=== PATIENT | male | born 1960 | race Caucasian/White ===

== ENCOUNTER 2016-11-10 15:17 | Emergency (ER) | payer SELFPAY ==
[~2016-11-10] VITALS: Ht 172.7 cm; Wt 74.1 kg
[2016-11-10 15:23] VITALS: Ht 172.7 cm; Wt 74.1 kg
[2016-11-10] MEDS ORDERED: SOD CHLORIDE 0.9% 1,000 ML IV STA (15:30)
[2016-11-10 16:24] LABS: BASOPHILS % 0.3 % (0.0-2.0); CHLORIDE 106 mmol/L (97-110); EOSINOPHILS # 0.1 10^3/ul (0.0-0.5); EOSINOPHILS % 0.8 % (0.0-7.0); HEMOGLOBIN 12.3 g/dl (14.0-18.0); INR 0.91; LYMPHOCYTES # 1.4 10^3/ul (0.8-2.9); LYMPHOCYTES % 12.6 % (15.0-51.0); MEAN CORPUSCULAR HEMOGLOBIN 30.1 pg (29.0-33.0); MEAN CORPUSCULAR HGB CONC 34.2 g/dl (32.0-37.0); MEAN CORPUSCULAR VOLUME 87.9 fl (82.0-101.0); MEAN PLATELET VOLUME 8.3 fl (7.4-10.4); MONOCYTE # 0.6 10^3/ul (0.3-0.9); MONOCYTES % 5.7 % (0.0-11.0); NEUTROPHIL # 8.8 10^3/ul (1.6-7.5); NEUTROPHILS % 80.6 % (39.0-77.0); PLATELET COUNT 236 10^3/UL (140-440); PROTIME 12.3 Sec (12.2-14.2); SODIUM 144 mmol/L (135-144); UNCORRECTED WBC 10.9 10^3/ul (4.8-10.8); WHITE BLOOD COUNT 10.9 10^3/ul (4.8-10.8)
[2016-11-10 16:25] LABS: PARTIAL THROMBOPLASTIN TIME 23.5 Sec (25.0-35.0); POTASSIUM 4.7 mmol/L (3.5-5.1)
[2016-11-10 16:27] LABS: CREATININE 0.99 mg/dl (0.61-1.24)
[2016-11-10 16:28] LABS: ANION GAP 19 (8-16); BLOOD UREA NITROGEN 21 mg/dl (7-20); CALCIUM 8.6 mg/dl (8.4-10.2); CARBON DIOXIDE 24 mmol/L (21-31); GLUCOSE 249 mg/dl (70-220); MAGNESIUM 1.8 mg/dl (1.7-2.5)
[2016-11-10 16:29] LABS: CONDITION 1
--- NOTE | 2016-11-10 16:44 | RADRPT ---
PROCEDURE: XR Chest. CLINICAL INDICATION: Chest pain. TECHNIQUE: Single frontal view of the chest was obtained. COMPARISON: None. FINDINGS: The cardiac silhouette is borderline enlarged. There is calcification in the thoracic aorta. Pulmo nary vasculature appears normal. Lung cronin appear clear. Costophrenic angles are well defined. The osseous structures appear intact. IMPRESSION: 1. Mild cardiomegaly with aortic atherosclerosis. 2. No acute cardiopulmonary process. RPTAT: [facility] Physician Jenna Date Time Electronically viewed and signed by Abdon David Physician on 11/10/2016 16:44 /
[2016-11-10 16:49] LABS: TROPONIN-I < 0.010 ng/ml (0.00-0.12)
[2016-11-10] MEDS ORDERED: CARV12.579 PO (17:15)
[2016-11-10] MEDS ORDERED: METF-388 PO (17:15)
[2016-11-10] MEDS ORDERED: LISI20TA11 PO (17:16)
[2016-11-10] MEDS ORDERED: CLOP75TA27 PO (17:16)
[2016-11-10] MEDS ORDERED: SERT50TA PO (17:16)
[2016-11-10] MEDS ORDERED: ASPI-664 PO (17:16)
[2016-11-10] MEDS ORDERED: FAMO20TA18 PO (17:17)
[2016-11-10] MEDS ORDERED: NIT4 SL (17:17)
--- NOTE | 2016-11-10 19:16 | ERD ---
ER Documentation Chief Complaint Date/Time DATE: 11/10/16 TIME: 19:14 Chief Complaint SUDDEN ONSET OF PALOITATIONS, EKG SVT IN FIELD, CONVERTED W/12 OF ADENOSINE HPI This is a 56-year-old male who presents to the emergency room with a chief complaint of palpitations. According to the EMS this patient was in SVT, and was given 12 mg of adenosine and converted to normal sinus rhythm. This patient does state that he has had one previous episode of SVT, he denies any active chest pain or palpitations or shortness of breath at this time. He does state that today he drank a cup of coffee, but states that he drinks caffeine almost every day. He denies any illicit drug use or alcohol use today ROS All systems reviewed and are negative except as per history of present illness. Medications Home Meds Reported Medications Famotidine* (Famotidine*) 20 Mg Tablet, 20 MG PO DAILY, #30 TAB 11/10/16 Nitroglycerin* (Nitrostat*) 0.4 Mg Tab.subl, 0.4 MG SL Q5MIN Y for CHEST PAIN, BOTTLE 11/10/16 Sertraline Hcl* (Zoloft*) 50 Mg Tablet, 50 MG PO DAILY, #30 TAB 11/10/16 Clopidogrel Bisulfate (Clopidogrel) 75 Mg Tablet, 75 MG PO DAILY, #30 TAB 11/10/16 Aspirin (Low Dose Aspirin) 81 Mg Tablet.dr, 81 MG PO DAILY, #30 TAB 11/10/16 Lisinopril* (Lisinopril*) 20 Mg Tablet, 20 MG PO DAILY, #30 TAB 11/10/16 Carvedilol* (Carvedilol*) 12.5 Mg Tablet, 12.5 MG PO BID, #60 TAB 11/10/16 Metformin Hcl* (Metformin Hcl*) 1,000 Mg Tablet, 1000 MG PO WITH BREAKFAST DINNE , #30 TAB 11/10/16 Allergies Allergies: Coded Allergies: No Known Allergy (Unverified , 11/10/16) PMhx/Soc History of Surgery: Yes (CARDIAC STENTS) Anesthesia Reaction: No Hx Neurological Disorder: No Hx Respiratory Disorders: No Hx Cardiac Disorders: Yes ([place] WITH STENTS X13, SVT, HTN, HYPERLIPIDEMIA) Hx Psychiatric Problems: No Hx Miscellaneous Medical Probl: Yes (DM TYPE II) Hx Alcohol Use: No Hx Substance Use: No Hx Tobacco Use: No (QUIT 15 YEARS AGO) Smoking Status: Former smoker Physical Exam Vitals Vital Signs Date Time Temp Pulse Resp B/P Pulse Ox O2 Delivery O2 Flow Rate FiO2 11/10/16 18:10 77 16 129/80 100 Room Air 11/10/16 16:44 98.1 98 16 122/76 99 Room Air 11/10/16 15:45 1 11/10/16 15:23 98.1 93 18 129/82 98 Physical Exam INITIAL VITAL SIGNS: Reviewed by me GENERAL: The patient is well developed and appropriate for usual state of health in no apparent distress HEENT: Pupils equal, round, and reactive to light. EOMI. There is no scleral icterus. NECK: C-spine is soft and supple, there is no meningismus. There is no cervical lymphadenopathy. LUNGS: Clear to auscultation bilaterally. There are no rales, wheezes or rhonchi. HEART: Regular rate and rhythm, no murmurs, clicks, rubs or gallops. ABDOMEN: Soft, non-tender, non-distended. There are bowel sounds in all four quadrants. No rebound or guarding. EXTREMITIES: There is no peripheral cyanosis or edema. No focal swelling or erythema. NEUROLOGICAL: The patient moves all four extremities with 5/5 strength. Cranial nerves II - XII are intact. Normal gait. Alert and oriented SKIN: There is no apparent rash or petechiae. HEME/LYMPHATIC: There is no evidence of excessive bruising or lymphedema. PSYCHIATRIC: The patient does not appear anxious or depressed. Result Diagram: 11/10/16 1545 11/10/16 1545 Results 24 hrs Laboratory Tests Test 11/10/16 15:45 11/10/16 15:48 11/10/16 18:26 Activated Partial Thromboplast Time 23.5Sec Anion Gap 19 Basophils # 0.010^3/ul Basophils % 0.3% Blood Urea Nitrogen 21mg/dl Calcium Level 8.6mg/dl Carbon Dioxide Level 24mmol/L Chloride Level 106mmol/L Creatinine 0.99mg/dl Eosinophils # 0.110^3/ul Eosinophils % 0.8% Glucose Level 249mg/dl Hematocrit 36.0% Hemoglobin 12.3g/dl INR International Normalized Ratio 0.91 Lymphocytes # 1.410^3/ul Lymphocytes % 12.6% Magnesium Level 1.8mg/dl Mean Corpuscular Hemoglobin 30.1pg Mean Corpuscular Hemoglobin Concent 34.2g/dl Mean Corpuscular Volume 87.9fl Mean Platelet Volume 8.3fl Monocytes # 0.610^3/ul Monocytes % 5.7% Neutrophils # 8.810^3/ul Neutrophils % 80.6% Nucleated Red Blood Cells # 0.010^3/ul Nucleated Red Blood Cells % 0.0/100WBC Platelet Count 40714^3/UL Potassium Level 4.7mmol/L Prothrombin Time 12.3Sec Prothrombin Time Ratio 1.0 Red Blood Count 4.1010^6/ul Red Cell Distribution Width 13.0% Sodium Level 144mmol/L Troponin I < 0.010ng/ml < 0.010ng/ml White Blood Count 10.910^3/ul Bedside Glucose 263mg/dL Current Medications Medications (Trade) Dose Ordered Sig/Brianna Route PRN Reason Start Time Stop Time Status Last Admin Dose Admin Sodium Chloride (NS) 1,000 ml @ 1,000 mls/hr Q1H STAT IV 11/10/16 15:30 11/10/16 16:29 DC 11/10/16 16:00 Procedures/MDM EKG: Rate/Rhythm: [Normal Sinus Rhythm] QRS, ST, T-waves: [No changes consistent w/ acute ischemia] Impression: [No evidence of ischemia or arrhythmia] Chest X-ray 1V Interpreted by me: Soft Tissue: No acute abnormalities Bones: No acute abnormalities Mediastinum/Cardiac Silhouette/Lungs: [No acute abnormalities] This 56-year-old male presents to the emergency room for palpitations. This patient was in SVT prior to arrival, he had no signs of SVT on my examination, EKG shows normal sinus rhythm after he did receive 12 mg of adenosine in the field. Lab work was obtained which does not show any signs of severe electrolyte abnormality. This patient did have 2 sets of troponins drawn 3 hours apart, with no increase in troponin, no active chest pain, he is hemodynamically stable at this time. He is not hypoxic and no complaints of shortness of breath or palpitations. This patient will be discharged home at this time. Both him and his family are okay the plan of care and advised him to return immediately to the ER if the patient were to develop any other palpitations and they verbalized understanding Departure Diagnosis: Primary Impression: Palpitations Additional Impression: Normocytic anemia Condition: Stable DINA LEVY DO Nov 10, 2016 19:16
[2016-11-10 19:24] VITALS: BP 127/81; PULSE 79; RESP 16; TEMP 98
== END 2016-11-10 19:25 | disposition home or self-care (01) ==
LOC: E/R 15:17
DX: R00.2 Palpitations (principal); D64.9 Anemia, unspecified; E11.9 Type 2 diabetes mellitus without complications; I10 Essential (primary) hypertension; Z79.82 Long term (current) use of aspirin; Z79.84 Long term (current) use of oral hypoglycemic drugs; Z98.61 Coronary angioplasty status; Z87.891 Personal history of nicotine dependence
CPT/HCPCS: 36415; 71010; 80048; 82962; 83735; 84484; 85025; 85610; 85730; 93005; 99285; J7030

== ENCOUNTER 2017-03-20 21:29 | Emergency (ER) | payer OTHER ==
[~2017-03-20] VITALS: Ht 167.6 cm; Wt 76.4 kg
[~2017-03-20 21:29] MED LIST: ASPI-664 PO; CARV12.579 PO; CLOP75TA27 PO; FAMO20TA18 PO; LISI20TA11 PO; METF1000 PO; NIT4 SL; SERT50TA PO
[2017-03-20 21:30] VITALS: Ht 167.6 cm; Wt 76.4 kg
[2017-03-20] MEDS ORDERED: ASPIRIN 325 MG TAB PO STA (21:31)
[2017-03-20] MEDS ORDERED: ATOR80TA75 PO (21:50)
[2017-03-20 21:59] LABS: ADD SCAN DIFF NO
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
[2017-03-20 22:08] LABS: BASOPHIL # 0.1 10^3/ul (0.0-0.1); EOSINOPHILS # 0.2 10^3/ul (0.0-0.5); EOSINOPHILS % 1.7 % (0.0-7.0); HEMATOCRIT 36.2 % (42.0-52.0); HEMOGLOBIN 12.1 g/dl (14.0-18.0); LYMPHOCYTES # 2.3 10^3/ul (0.8-2.9); LYMPHOCYTES % 22.6 % (15.0-51.0); MEAN CORPUSCULAR HEMOGLOBIN 29.2 pg (29.0-33.0); MEAN CORPUSCULAR HGB CONC 33.4 g/dl (32.0-37.0); MEAN CORPUSCULAR VOLUME 87.4 fl (82.0-101.0); MEAN PLATELET VOLUME 10.4 fl (7.4-10.4); MONOCYTE # 0.8 10^3/ul (0.3-0.9); MONOCYTES % 7.6 % (0.0-11.0); NEUTROPHIL # 6.8 10^3/ul (1.6-7.5); NEUTROPHILS % 66.7 % (39.0-77.0); PLATELET COUNT 272 10^3/UL (140-415); RED BLOOD COUNT 4.14 10^6/ul (4.70-6.10); RED CELL DISTRIBUTION WIDTH 12.9 % (11.5-14.5); WHITE BLOOD COUNT 10.2 10^3/ul (4.8-10.8)
[2017-03-20 22:16] LABS: INR 0.9; PROTIME 12.1 Sec (12.2-14.2); PT RATIO 0.9
[2017-03-20 22:17] LABS: PARTIAL THROMBOPLASTIN TIME 24.5 Sec (25.0-35.0)
[2017-03-20 22:21] LABS: ANION GAP 12 (8-16); BLOOD UREA NITROGEN 22 mg/dl (7-20); CALCIUM 9.6 mg/dl (8.4-10.2); CARBON DIOXIDE 26 mmol/L (21-31); CHLORIDE 105 mmol/L (97-110); GLUCOSE 193 mg/dl (70-220); POTASSIUM 4.3 mmol/L (3.5-5.1); SODIUM 139 mmol/L (135-144)
[2017-03-20 22:34] LABS: TROPONIN-I < 0.012 ng/ml (0.00-0.12)
--- NOTE | 2017-03-20 22:42 | RADRPT ---
PROCEDURE: XR Chest. CLINICAL INDICATION: Chest pain TECHNIQUE: Single frontal chest x-ray. COMPARISON: Chest x-ray dated 11/10/2016 FINDINGS: The lungs are clear. No focal opacification is seen. The cardiomediastinal silhouette is remarkabl e for mild borderline cardiomegaly, stable over time. Aortic atherosclerotic vascular calcifications are identified. The osseous structures are unremarkable. IMPRESSION: 1. There is no acute cardiopulmonary process. 2. Vascular calcifications consistent with atherosclerosis. 3. Mild cardiomegaly, stable over time. RPTAT: HMJB .Beau Darby MD, Date Time Electronically viewed and signed by .Beau Darby MD, on 03/20/2017 22:42 .B/
[2017-03-21] MEDS ORDERED: NAPR-688 PO (04:44)
[2017-03-21] MEDS ORDERED: METH500T PO (04:44)
[2017-03-21 04:59] VITALS: BP 152/78; PULSE 72; RESP 20
== END 2017-03-21 05:10 | disposition home or self-care (01) ==
LOC: E/R 21:29
DX: I47.1 Supraventricular tachycardia (principal); S13.4XXA Sprain of ligaments of cervical spine, initial encounter; E11.9 Type 2 diabetes mellitus without complications; I10 Essential (primary) hypertension; V49.40XA Driver injured in collision with unspecified motor vehicles in traffic accident, initial encounter; Z79.82 Long term (current) use of aspirin; Z79.84 Long term (current) use of oral hypoglycemic drugs; Z98.61 Coronary angioplasty status; Z87.891 Personal history of nicotine dependence
CPT/HCPCS: 36415; 71010; 80048; 84484; 85025; 85610; 85730; 93005; Z7502; Z7610

== ENCOUNTER 2018-05-25 01:34 | Emergency (ER) | END 2018-05-25 04:05 | disposition home or self-care (01) ==